=== PATIENT | female | born 1995 | race Caucasian/White ===

== ENCOUNTER 2017-03-28 10:35 | Inpatient (IN) | payer OTHER ==
[2017-03-28] MEDS ORDERED: PROMETHAZINE HCL 25 MG/1 ML VIAL IVPUSH ONE (10:55)
[2017-03-28] MEDS ORDERED: BUTORPHANOL TARTRATE 1 MG/ML VIAL IVPB ONE (10:55)
--- NOTE | 2017-03-28 10:58 | HP ---
Past Medical History - Primary Care Physician PCP:: Raquel Zuñiga - Admission Chief Complaint: Labor History of Present Illness: 21 yo EDC 03/30/17 ega 39.5 week admitted in labor History Source: Patient Home Medications - Allergies Allergies/Adverse Reactions: Allergies Allergy/AdvReac Type Severity Reaction Status Date / Time No Known Allergies Allergy Verified 03/28/17 11:22 - Home Medications Home Medications: Ambulatory Orders Vitamins (Sjr) - 1 tablet PO DAILY 03/28/17 Ferrous Sulfate [Feosol] 325 mg PO BID #60 tablet 03/30/17 Ibuprofen [Motrin -] 600 mg PO QID #28 tablet 03/30/17 Physical Exam - Maternity Constitutional: Yes: Well Nourished, No Distress HENT: Yes: WNL Neck: Yes: WNL Cardiovascular: Yes: WNL Lungs: Clear to auscultation Breast(s): Yes: WNL - Abdominal Exam/OB Number of Fetuses: Single Presentation: Vertex Contractions: Yes Category: I - Vaginal Exam/OB Dilatation (cm): 4 Effacement (%): 100 Amniotic Membrane Status: Bulging Presentation: Vertex/Position - Physical Exam Edema: No Hemorrhage Risk Assessment - Risk Factors Risk Score: 0 Risk Level: Low Risk Problem List - Problems (1) First stage of labor established Code(s): [id number] - Assessment/Plan IUP at 39.5 week Labor Plan IVF Stadol labs admit to LD
[2017-03-28] MEDS ORDERED: ELECTROLYTE-148 SOLN 1,000 ML IV SCH (11:00)
[2017-03-28 11:30] VITALS: BMI 21.4
[2017-03-28 11:51] LABS: BASO % 0.3 % (0-2.0); HEMATOCRIT 39.3 % (32.4-45.2); HEMOGLOBIN 12.5 GM/dL (10.7-15.3); LYMPH % 5.5 % (8-40); MCH 27.3 pg (25.7-33.7); MCHC 31.9 g/dl (32.0-36.0); MEAN CELL VOLUME 85.7 fl (80-96); MEAN PLT VOLUME 9.7 fl (7.5-11.1); NEUT % 92.2 % (42.8-82.8); PLATELET COUNT 216 K/MM3 (134-434); RBC 4.59 M/mm3 (3.60-5.2); RDW 14.4 % (11.6-15.6); WHITE BLOOD COUNT 13.5 K/mm3 (4.0-10.0)
[2017-03-28] MEDS ORDERED: BUTORPHANOL TARTRATE 1 MG/ML VIAL ONE ×2 (11:57)
[2017-03-28] MEDS ORDERED: PROMETHAZINE HCL 25 MG/1 ML VIAL ONE (11:57)
[2017-03-28 12:17] LABS: ANION GAP 12 (8-16); BLOOD UREA NITROGEN 6 mg/dL (7-18); CALCIUM 7.8 mg/dL (8.5-10.1); CHLORIDE 106 mmol/L (98-107); CO2 21 mmol/L (21-32); CREATININE 0.6 mg/dL (0.55-1.02); GLUCOSE,RANDOM 145 mg/dL (74-106); POTASSIUM 3.3 mmol/L (3.5-5.1); SODIUM 139 mmol/L (136-145)
[2017-03-28 12:24] LABS: INR 0.98 (0.82-1.09); PROTHROMBIN TIME (PATIENT) 11.1 SEC (9.98-11.88)
[2017-03-28 12:27] LABS: ACTIVATED PTT 28.9 SECONDS (26.9-34.4)
--- NOTE | 2017-03-28 12:42 | PN ---
Ante-Partal Exam - Subjective Subjective: Pt doing well Pt is sleeping after stadol Vital Signs: Vital Signs Temperature 98.2 F 03/28/17 12:00 Pulse Rate 74 03/28/17 12:00 Respiratory Rate 20 03/28/17 12:00 Blood Pressure 138/79 03/28/17 12:00 O2 Sat by Pulse Oximetry (%) Bleeding: No Headache: No Visual changes: No Right upper quadrant pain: No - Contractions Contractions: Yes Regularity: Regular Intensity: Moderate Monitor Mode: External - Exam during Labor Heart Rate: 150 Variability: Moderate Category: I Monitor Accelerations: Present Monitor Decelerations: None Exam: Vaginal Dilatation (cm): 10 Effacement (%): 100 Amniotic Membrane Status: Ruptured Amniotic Fluid: Clear Presentation: Vertex Station: +1 - Intrapartum Hemorrhage Risk Risk Score: 0 Risk Level: Low Risk - Assessment/Plan Assessment/Plan: IUP 39.5 week by usg 2nd stage Plan Continue present management
[2017-03-28] MEDS ORDERED: OXYTOCIN 20 UNITS in 0.9% NS 20 UNIT/1,000 ML INFUS.BAG IV ONE (12:47)
[2017-03-28] MEDS ORDERED: TUBERCULIN PPD 5 TU/0.1ML SYRINGE (IN PATIENT USE ONLY) ID ONE (13:00)
[2017-03-28] MEDS ORDERED: METHYLERGONOVINE MALEATE 0.2 MG/1 ML AMP IM PRN (14:38)
[2017-03-28] MEDS ORDERED: BENZOCAINE 20% 57 GM BOTTLE TP PRN (14:38)
[2017-03-28] MEDS ORDERED: BISACODYL 10 MG SUPP.RECT PR PRN (14:38)
[2017-03-28] MEDS ORDERED: WITCH HAZEL 50% (TUCKS) 40 PAD/JAR PAD TP PRN (14:38)
[2017-03-28] MEDS ORDERED: BENZOCAINE 28 GM HEMORRHOIDAL OINTMENT PR PRN (14:38)
[2017-03-28] MEDS: OXYTOCIN 20 UNITS in 0.9% NS 20 UNIT/1,000 ML INFUS.BAG IV SCH ×2 (15:25→20:37)
[2017-03-28 16:47] LABS: ARTERIAL BLOOD GAS pH 7.32 (7.35-7.45)
[2017-03-28 16:48] LABS: ARTERIAL BLOOD GAS BASE EXCESS -2.2 meq/l (-2-2)
[2017-03-28 16:53] LABS: VENOUS PC02 44.3 mmHg (38-52); VENOUS PH 7.34 (7.32-7.42); VENOUS PO2 31.1 mmHg (28-48)
[2017-03-28 16:53] LABS: ARTERIAL BLD GAS O2 SATURATION 63.2 % (90-98.9); ARTERIAL BLOOD GAS PO2 29.3 mmHg (80-100)
[2017-03-28] MEDS ORDERED: LIDOCAINE HCL 1% PRESERVATIVE FREE - 30ML VIAL ONE (17:04)
[2017-03-28] MEDS: ACETAMINOPHEN 325 MG TABLET (FP) PO PRN (17:51)
[2017-03-28] MEDS: IBUPROFEN 600 MG TABLET (FP) PO PRN (20:30)
[2017-03-29] MEDS: IBUPROFEN 600 MG TABLET (FP) PO PRN ×2 (03:54→19:11)
[2017-03-29] MEDS: ACETAMINOPHEN 325 MG TABLET (FP) PO PRN ×2 (03:56→19:12)
[2017-03-29 06:37] LABS: HBsAG SCREEN Negative (Negative)
[2017-03-29 08:14] LABS: BASO % 0.4 % (0-2.0); EOS % 0.2 % (0-4.5); HEMATOCRIT 23.2 % (32.4-45.2); HEMOGLOBIN 7.4 GM/dL (10.7-15.3); LYMPH % 13.7 % (8-40); MCH 27.7 pg (25.7-33.7); MCHC 31.9 g/dl (32.0-36.0); MEAN CELL VOLUME 87.1 fl (80-96); MONO % 9.6 % (3.8-10.2); NEUT % 76.1 % (42.8-82.8); PLATELET COUNT 171 K/MM3 (134-434); RBC 2.66 M/mm3 (3.60-5.2); RDW 14.2 % (11.6-15.6); WHITE BLOOD COUNT 13.2 K/mm3 (4.0-10.0)
[2017-03-30] MEDS: IBUPROFEN 600 MG TABLET (FP) PO PRN ×2 (01:52→12:18)
[2017-03-30] MEDS: ACETAMINOPHEN 325 MG TABLET (FP) PO PRN ×2 (01:53→12:19)
--- NOTE | 2017-03-30 06:53 | PN ---
Delivery - Delivery Vaginal Delivery: No Problems (Post hemorrhage seen and responded to fundal massage and pitocin) Type of Anesthesia: Local Episiotomy/Laceration: Midline EBL (cc): 500 Delivery, Single - Stages of Labor Date 1st Stage Initiatied: 03/28/17 Time 1st Stage Initiated: 06:00 Date 2nd Stage Initiated: 03/28/17 Time 2nd Stage Initiated: 12:35 Date of Delivery: 03/28/17 Time of Delivery: 15:17 Time Placenta Delivered: 15:25 - Condition of Infant Office Communication Professor/Well Surveying Engineer Present: No Gender: Male Weight: 7 lb 6 oz Position: Left, OA Total Hours ROM (Hrs/Mins): 2HRS-50 MINS - 1 Minute Total Score: 9 5 Minutes Total Score: 9 - [place] Feeding Plan Initial Plan: Elected not to breastfeed exclusively throughout hospitalization
--- NOTE | 2017-03-30 06:55 | PN ---
Post Note - Post Date of Delivery: 03/28/17 Post Day: 1 Vital Signs: Vital Signs - 24 hr 03/29/17 03/29/17 03/29/17 09:05 14:00 22:00 Temperature 98.6 F 98.6 F 98.5 F Pulse Rate 102 H 111 H 93 H Respiratory 18 20 18 Rate Blood Pressure 126/74 113/65 102/60 Labs: Laboratory Results - last 24 hr 03/29/17 06:25 WBC 13.2 H RBC 2.66 L D Hgb 7.4 L D Hct 23.2 L D MCV 87.1 MCH 27.7 MCHC 31.9 L RDW 14.2 Plt Count 171 D MPV 10.0 Neutrophils % 76.1 Lymphocytes % 13.7 D Monocytes % 9.6 D Eosinophils % 0.2 D Basophils % 0.4 - Subjective Subjective: No Complaints, No Nausea or vomiting - Objective Afebrile: Yes Breast: Not engorged Abdomen: Soft, Non-tender Uterus: Fundus firm Vagina: Scant lochia Extremities: Non-tender - Assessment/Plan (1) First stage of labor established Assessment: S/P Normal , Other (Anemia) Plan: Routine Care, Other (Iron BID )
[2017-03-30 07:39] LABS: BASO % 0.4 % (0-2.0); EOS % 0.3 % (0-4.5); HEMATOCRIT 21.7 % (32.4-45.2); LYMPH % 14.8 % (8-40); MCH 28.1 pg (25.7-33.7); MCHC 32.4 g/dl (32.0-36.0); MEAN CELL VOLUME 86.6 fl (80-96); MEAN PLT VOLUME 9.2 fl (7.5-11.1); MONO % 6.9 % (3.8-10.2); NEUT % 77.6 % (42.8-82.8); PLATELET COUNT 167 K/MM3 (134-434); RDW 14.5 % (11.6-15.6)
[2017-03-30] MEDS ORDERED: FERROUS SO4 325 MG TABLET (FP) PO SCH (08:00)
[2017-03-30 09:35] VITALS: BP 103/60; PULSE 84; TEMP 99.1
--- NOTE | 2017-03-30 10:08 | DS ---
Physical Exam-[employer] Vital Signs: Vital Signs Temperature 99.1 F 03/30/17 09:32 Pulse Rate 84 03/30/17 09:32 Respiratory Rate 20 03/30/17 09:32 Blood Pressure 103/60 03/30/17 09:32 O2 Sat by Pulse Oximetry (%) 100 03/28/17 16:15 Constitutional: Yes: Well Nourished, No Distress Respiratory: Yes: WNL Gastrointestinal: Yes: WNL ....Post : Yes: Uterus firm, Uterus non-tender Breast(s): Yes: WNL Labs: CBC, BMP 03/30/17 07:00 03/28/17 11:30 Delivery - Delivery Vaginal Delivery: No Problems (Post hemorrhage seen and responded to fundal massage and pitocin) Type of Anesthesia: Local Episiotomy/Laceration: Midline EBL (cc): 500 Delivery, Single - Stages of Labor Date 1st Stage Initiatied: 03/28/17 Time 1st Stage Initiated: 06:00 Date 2nd Stage Initiated: 03/28/17 Time 2nd Stage Initiated: 12:35 Date of Delivery: 03/28/17 Time of Delivery: 15:17 Time Placenta Delivered: 15:25 - Condition of Infant Communications Systems Engineer/Network Analyst Present: No Gender: Male Weight: 7 lb 6 oz Position: Left, OA Total Hours ROM (Hrs/Mins): 2HRS-50 MINS - 1 Minute Total Score: 9 5 Minutes Total Score: 9 - [place] Feeding Plan Initial Plan: Elected not to breastfeed exclusively throughout hospitalization Discharge Summary Reason For Visit: LABOR Current Active Problems First stage of labor established (Acute) anemai Procedures: Principal: Normal vaginal delivery Hospital Course: Post hemorrhage Condition: Good - Instructions Diet, Activity, Other Instructions: Physical activity Resume your normal everyday activity as tolerated no heavy lifting or exercise until seen by your surgeon. You may walk unlimited olive of and climb stairs. You may resume driving the car when you feel safe and comfortable behind the wheel. No sexual activity as instructed. Wound care If you have a bandage, leave it on, and keep dry for 48-72 hours. After that time discard the outer bandage. If they are tapes on the skin under the out of bandage leave them in place. They will peel off in the next 7 to 10 days. Do Not Peel them off. You may shower the day after surgery. If there are tapes present on the skin, you may shower over them. Diet There are no dietary restrictions. Eat healthy, high-fiber foods. Drink 6 to 8 glasses of liquid each day. This will assist in keeping your bowels are regular. Pain management You may take Tylenol or acetaminophen or Ibuprofen (for example, Motrin, Advil etc.) from my pain prescription medication is ordered should be taken as prescribed for moderate to severe pain. Call MD for any of the following: Severe pain not relieved by medication Fever of 101 or higher Excessive bleeding or drainage on dressing Inability to urinate Referrals: Raquel Zuñiga MD [Staff Physician] - Disposition: HOME - Home Medications Comprehensive Discharge Medication List: Ambulatory Orders Vitamins (Sjr) - 1 tablet PO DAILY 03/28/17 Ferrous Sulfate [Feosol] 325 mg PO BID #60 tablet 03/30/17 Ibuprofen [Motrin -] 600 mg PO QID #28 tablet 03/30/17
== END 2017-03-30 15:00 | disposition home or self-care (01) | DRG 560 ==
LOC: JLDR 10:35 → J3W 17:03
PROVIDERS: ADMIT Obstetrics & Gynecology; ATTEND Obstetrics & Gynecology
PROC: 0W8NXZZ Division of Female Perineum, External Approach (ICD-10-PCS; principal; 2017-03-28)
DX: O99.02 Anemia complicating childbirth (principal); D64.9 Anemia, unspecified; O72.1 Other immediate postpartum hemorrhage; Z3A.39 39 weeks gestation of pregnancy; Z37.0 Single live birth
CPT/HCPCS: 36415; 36600; 59409; 80048; 82803; 85025; 85610; 85730; 86593; 86762; 86850; 86900; 86901; 87340

== ENCOUNTER 2017-11-07 20:49 | Emergency (ER) | payer OTHER ==
[2017-11-07 21:02] VITALS: BP 110/71; PULSE 87; TEMP 98; BMI 18.3
--- NOTE | 2017-11-07 21:16 | PDOC ---
History of Present Illness - General Chief Complaint: Vaginal Sxs Stated Complaint: RASH Time Seen by Provider: 11/07/17 21:07 - History of Present Illness Initial Comments: 22-year-old female 7 months presents for evaluation of 3 weeks of vaginal discharge she describes it is at times yellow to greenish and thick white associated no other associated symptoms 11/07/17 21:14 Past History - Past Medical History Allergies/Adverse Reactions: Allergies Allergy/AdvReac Type Severity Reaction Status Date / Time No Known Allergies Allergy Verified 11/07/17 21:03 Home Medications: Ambulatory Orders metroNIDAZOLE 0.75% VAG. GEL [Metrogel 0.75% *Vaginal Gel* -] 1 applic VG HS #1 tube 11/07/17 Asthma: No Cancer: No Cardiac Disorders: No CVA: No COPD: No Diabetes: No HTN: No Seizures: No Thyroid Disease: No - Suicide/Smoking/Psychosocial Hx Smoking History: Never smoked Have you smoked in the past 12 months: No Hx Alcohol Use: No Drug/Substance Use Hx: No Hx Substance Use Treatment: No Review of Systems - Review of Systems : Yes: See HPI, Discharge All Other Systems: Reviewed and Negative *Physical Exam - Vital Signs Last Vital Signs Temp Pulse Resp BP Pulse Ox 98 F 87 18 110/71 98 11/07/17 20:59 11/07/17 20:59 11/07/17 20:59 11/07/17 20:59 11/07/17 20:59 - Physical Exam Comments: Vaginal examination pelvic examination done by female physician medical technician assistant 11/07/17 21:15 Medical Decision Making - Medical Decision Making Ariella Houser, exam consistent with BV. 11/07/17 21:20 *DC/Admit/Observation/Transfer Diagnosis at time of Disposition: Bacterial vaginitis - Referrals Referrals: Mohit Fermin [Primary Care Provider] - - Patient Instructions Additional Instructions: Use the medication as directed. Return to the emergency room should symptoms worsen or go unresolved. Follow-up with your clergy member in one to 2 days for further evaluation and treatment options. - Post Discharge Activity
--- NOTE | 2017-11-07 21:40 | PDOC ---
*Physical Exam - Vital Signs Last Vital Signs Temp Pulse Resp BP Pulse Ox 98 F 87 18 110/71 98 11/07/17 20:59 11/07/17 20:59 11/07/17 20:59 11/07/17 20:59 11/07/17 20:59 Progress Note - Progress Note Progress Note: Pelvic: External genitalia normal without lesions. Vaginal vault: copious malodorous fishy cottage cheese-like discharge. Cervix is long and closed/friable. No cervical motion tenderness. Uterus is nontender and normal in size. Adnexa are nontender and without masses. Cervical swabs and vaginal cultures are obtained. *DC/Admit/Observation/Transfer Diagnosis at time of Disposition: Bacterial vaginitis - Prescriptions Prescriptions: metroNIDAZOLE 0.75% VAG. GEL [Metrogel 0.75% *Vaginal Gel* -] 1 applic VG HS #1 tube - Referrals Referrals: Mohit Fermin [Primary Care Provider] - - Patient Instructions Additional Instructions: Use the medication as directed. Return to the emergency room should symptoms worsen or go unresolved. Follow-up with your sales and service officer in one to 2 days for further evaluation and treatment options. - Post Discharge Activity
--- NOTE | 2017-11-11 15:43 | PDOC ---
Patient Follow-up (Call Back) - Post ED Follow - Up Chief Complaint: Vaginal Sxs Condition at time of discharge: Stable Disposition at time of original discharge: HOME Reason for Call Back: Abnwl. Microbiology (yeast organism) Signs/Symptoms Improved: No (continued discharge ) - Disposition Rx Needed: Yes (diflucan 200mg) Additional Instructions/Notes: prescription sent to the pharmacy for diflucan for yeast infection pt continues to have discharge, I have referred her to her roto rooter operator
== END 2017-11-07 21:44 | disposition home or self-care (01) ==
LOC: JERFT 20:49
DX: N76.0 Acute vaginitis (principal); B96.89 Other specified bacterial agents as the cause of diseases classified elsewhere
CPT/HCPCS: 87070; 87077; 87205; 99281-25

== ENCOUNTER 2017-12-06 18:41 | Emergency (ER) | payer OTHER ==
[2017-12-06 18:48] VITALS: TEMP 98.6; BMI 18.0
--- NOTE | 2017-12-06 20:42 | PDOC ---
History of Present Illness - General Chief Complaint: Pain Stated Complaint: ABDOMINAL PAIN & WEAKNESS Time Seen by Provider: 12/06/17 20:42 History Source: Patient Exam Limitations: No Limitations - History of Present Illness Initial Comments: 12/06/17 21:31 22 year old female with PMH anemia presents to ED for lower abdominal pain x2 days. She describes her abdominal pain as achy/crampy, non-radiating, no alleviating or aggravating factors. She admits to dysuria, vaginal discharge, nausea, vomiting. She states since the of her child she has had multiple UTIs (march 2017). LMP x1 week ago. Pt also complains of intermittent chest pain x5 months. Allergies - NKDA Past History - Past Medical History Allergies/Adverse Reactions: Allergies Allergy/AdvReac Type Severity Reaction Status Date / Time No Known Allergies Allergy Verified 12/06/17 18:47 Home Medications: Ambulatory Orders metroNIDAZOLE 0.75% VAG. GEL [Metrogel 0.75% *Vaginal Gel* -] 1 applic VG HS #1 tube 11/07/17 Fluconazole [Diflucan] 200 mg PO ONCE #1 tablet 11/11/17 Cephalexin [Keflex] 500 mg PO BID #13 capsule 12/06/17 Fluconazole 150 mg PO DAILY #6 tablet 12/06/17 Ondansetron [Zofran Odt -] 4 mg SL TID PRN #9 od.tablet 12/06/17 Asthma: No Cancer: No Cardiac Disorders: No CVA: No COPD: No Diabetes: No HTN: No Seizures: No Thyroid Disease: No - Suicide/Smoking/Psychosocial Hx Smoking History: Never smoked Have you smoked in the past 12 months: No Hx Alcohol Use: No Drug/Substance Use Hx: No Hx Substance Use Treatment: No Review of Systems - Review of Systems Able to Perform ROS?: Yes Comments:: 12/06/17 22:02 General: denies fever, chills, night sweats, generalized weakness. HEENT: denies sore throat, rhinorrhea, ear pain. Heart: admits to chest pain. denies palpitations, syncope, lower extremity swelling, diaphoresis. Respiratory: denies shortness of breath, cough, sputum production, hemoptysis. Abdomen: admits to abdominal pain, nausea, vomiting. denies diarrhea, constipation, blood in stool. : admits to dysuria, vaginal discharge. denies hematuria, urinary incontinence , flank pain. Back: denies back pain. Musculoskeletal: denies joint pain, muscle pain, joint swelling. Neurological: denies headache, dizziness, numbness, tingling, weakness. Skin: denies rash, laceration, abrasion. *Physical Exam - Vital Signs Last Vital Signs Temp Pulse Resp BP Pulse Ox 98.6 F 126 H 20 120/68 99 12/06/17 18:42 12/06/17 18:42 12/06/17 18:42 12/06/17 18:42 12/06/17 18:42 - Physical Exam Comments: 12/06/17 22:03 Constitutional: Well-nourished, Well-developed, appearing stated age. HEENT: head is normocephalic, atraumatic. EOMI. PERRLA. Neck: supple. Full ROM. Heart: tachycardic. regular rhythm. no murmurs, rubs or gallops. Lungs: clear to auscultation bilaterally. no crackles, rhonchi or wheezing. no stridor. Abdomen: soft, nontender. normal bowel sounds. no rebound, guarding, masses. Pelvic: white discharge noted in vaginal canal consistent with yeast. cervix visualized, external os closed, minimal erythema to external os. no CMT. no adnexal tenderness. Extremities: Peripheral pulses intact. No lower extremity edema. Neurological: CN 2-12 grossly intact. Moves all four extremities. Psych: awake, alert, oriented x3. Follows commands. Answers questions appropriately. ED Treatment Course - LABORATORY CBC & Chemistry Diagram: 12/06/17 21:20 12/06/17 21:20 Medical Decision Making - Medical Decision Making 12/06/17 22:00 22 year old female with PMH anemia presents to ED for lower abdominal pain associated with dysuria, vaginal white discharge, nausea, vomiting x2 days. She also complains of chest pain x5 months. Initial Vital Signs Temp Pulse Resp BP Pulse Ox 98.6 F 126 H 20 120/68 99 12/06/17 18:42 12/06/17 18:42 12/06/17 18:42 12/06/17 18:42 12/06/17 18:42 Afebrile. Tachycardic - Likely secondary to dehydration - IV fluids ordered - Zofran ordered for nausea No tachypnea No hypotension No hypoxia on room air Evidence of yeast infection on pelvic examination. EKG performed at 2129 - rate 80, regular rhythm, normal axis, normal intervals, no acute ST changes. CBC WBC 11.0 K/mm3 (4.0-10.0) H 12/06/17 21:20 RBC 4.92 M/mm3 (3.60-5.2) 12/06/17 21:20 Hgb 10.7 GM/dL (10.7-15.3) 12/06/17 21:20 Hct 34.9 % (32.4-45.2) D 12/06/17 21:20 MCV 70.8 fl (80-96) L 12/06/17 21: MCH 21.8 pg (25.7-33.7) L D 12/06/17 21: MCHC 30.8 g/dl (32.0-36.0) L 12/06/17 21:20 RDW 18.8 % (11.6-15.6) H 12/06/17 21:20 Plt Count 489 K/MM3 (134-434) H D 12/06/17 21:20 MPV 7.8 fl (7.5-11.1) D 12/06/17 21:20 Absolute Neuts (auto) 8.2 K/mm3 (1.5-8.0) H 12/06/17 21:20 Neutrophils % 74.2 % (42.8-82.8) 12/06/17 21:20 Lymphocytes % 17.4 % (8-40) 12/06/17 21: Monocytes % 7.5 % (3.8-10.2) 12/06/17 21:20 Eosinophils % 0.3 % (0-4.5) 12/06/17 21: Basophils % 0.6 % (0-2.0) 12/06/17 21: Nucleated RBC % 0 % (0-0) 12/06/17 21: No leukocytosis. No anemia, but borderline. Urine Test Results Urine Color Eli 12/06/17 Unknown Urine Appearance Cloudy 12/06/17 Unknown Urine pH 5.0 (5.0-8.0) 12/06/17 Unknown Ur Specific [place] 1.028 (1.010-1.035) 12/06/17 Unknown Urine Protein 1+ (NEGATIVE) H 12/06/17 Unknown Urine Glucose (UA) Negative (NEGATIVE) 12/06/17 Unknown Urine Ketones Negative (NEGATIVE) 12/06/17 Unknown Urine Blood 1+ (NEGATIVE) H 12/06/17 Unknown Urine Nitrite Negative (NEGATIVE) 12/06/17 Unknown Urine Bilirubin Negative (<2.0 mg/dL) 12/06/17 Unknown Ur Leukocyte Esterase 3+ (NEGATIVE) H 12/06/17 Unknown Ur Epithelial Cells Few /HPF (FEW) 12/06/17 Unknown Urine Bacteria Rare /hpf (NONE SEEN) 12/06/17 Unknown Urine Mucus Few 12/06/17 Unknown Evidence of UTI. WBC = 300+ - Keflex ordered CMP Sodium 141 mmol/L (136-145) 12/06/17 21:20 Potassium 3.8 mmol/L (3.5-5.1) 12/06/17 21:20 Chloride 104 mmol/L (98-107) 12/06/17 21:20 Carbon Dioxide 29 mmol/L (21-32) 12/06/17 21:20 Anion Gap 8 MMOL/L (8-16) 12/06/17 21:20 BUN 8 mg/dL (7-18) 12/06/17 21:20 Creatinine 0.7 mg/dL (0.55-1.3) 12/06/17 21:20 Creat Clearance w eGFR > 60 (>60) 12/06/17 21:20 Random Glucose 79 mg/dL (74-106) 12/06/17 21:20 Calcium 9.0 mg/dL (8.5-10.1) 12/06/17 21:20 Total Bilirubin 0.4 mg/dL (0.2-1) 12/06/17 21:20 AST 10 U/L (15-37) L 12/06/17 21:20 ALT 19 U/L (13-61) 12/06/17 21:20 Alkaline Phosphatase 83 U/L (45-117) 12/06/17 21:20 Total Protein 7.9 g/dl (6.4-8.2) 12/06/17 21:20 Albumin 4.0 g/dl (3.4-5.0) 12/06/17 21:20 TSH 1.91 uIU/ml (0.358-3.74) 12/06/17 21:20 No electrolyte abnormalities. No acute kidney injury. No transaminitis. No hyperglycemia. Normal TSH. 12/06/17 22:22 Pt tolerated PO fluid challenge. 12/06/17 22:29 Pt reassessed, states she is feeling better, she tolerated solid food PO challenge. - HR 80 I spoke with the patient about the results. She stated she understood. I spoke with the patient about the plan for care, with which she agrees. Patient will be discharged. *DC/Admit/Observation/Transfer Diagnosis at time of Disposition: UTI (urinary tract infection), Vaginal discharge - Discharge Dispostion Disposition: HOME Condition at time of disposition: Stable Decision to Admit order: No - Prescriptions Prescriptions: Cephalexin [Keflex] 500 mg PO BID #13 capsule Fluconazole 150 mg PO DAILY #6 tablet Ondansetron [Zofran Odt -] 4 mg SL TID PRN #9 od.tablet PRN Reason: Nausea - Referrals - Patient Instructions Printed Discharge Instructions: DI for Vaginal Yeast Infection, DI for Urinary Tract Infection (UTI) Additional Instructions: DOCTOR'S INSTRUCTIONS: Your blood work was normal. - I have included a copy of your results in your discharge paperwork Your urine analysis revealed a urinary tract infection. - You received the first dose of the antibiotic here in the Emergency Department - I have sent a prescription to your pharmacy for the remainder of the antibiotic - Pick it up today and take as advised on label - Take a probiotic to avoid antibiotic associated diarrhea/yeast infections Your EKG was normal. You likely have a yeast infection - You received the treatment in the Emergency Department - I sent a prescription for a once daily dose of Fluconazole to take while you are on the antibiotics. Take as advised on label. I have sent a prescription for an anti-nausea medication to your pharmacy. Take as advised on label as needed for nausea. - I am only going to prescribe a few days worth. - If your vomiting continues beyond the amount of pills you have, return to the Emergency Department Follow up with your primary care doctor within 3 days. Call their office tomorrow morning and make an appointment for the earliest available. Tell them you were seen in the Emergency Department. Your care is not complete until you follow up. Return to the Emergency Department for fever >105, fever >3 days, increasing pain, lightheadedness, chest pain, shortness of breath, back/flank pain, or any other new, worsening or concerning symptoms. - Post Discharge Activity
[2017-12-06] MEDS ORDERED: SODIUM CHLORIDE 1,000 ML IV STA (21:10)
--- NOTE | 2017-12-06 21:11 | PDOC ---
Attending Attestation - HPI HPI: 12/06/17 21:14 The patient is a 22 year old female, , with no significant PMH who presents to the emergency department with lower abdominal pain, dysuria, white vaginal discharge for the past two days. Patient is also complaining of nausea and vomiting. The patient reports intermittent chest pain for the past 5 months. The patient denies shortness of breath, headache and dizziness. Denies fever, chills, diarrhea and constipation. Denies dysuria, frequency, urgency and hematuria. Allergies: NKA Past surgical history: None reported. Social history: No reported alcohol, drug, or cigarette use. - Physicial Exam PE: 12/06/17 22:32 Adult Exam: General: Well-nourished well-developed individual, no acute distress HEENT: Throat: Normal, tonsils normal, no erythema or exudate Neck: Supple, no meningeal signs, no lymphadenopathy Eyes::Pupils equal reactive and round, extraocular motion intact Chest: Nontender to palpation Cardiac: S1-S2 normal, regular rate and rhythm, no murmurs rubs or gallops Respiratory: Lungs clear to auscultation bilateral Abdomen: Soft, nondistended, normal bowel sounds, nontender to palpation diffusely Back: No flank pain. Extremities: Warm, dry, no cyanosis, clubbing, or edema Skin: No rashes Neuro: Alert and oriented x3, nonfocal exam, grossly intact, normal gait Psych: Normal mood and affect <Kristine Pennington - Last Filed: 12/06/17 22:32> - Resident Resident Name: Sneha Horan - ED Attending Attestation I have performed the following: I have examined & evaluated the patient, The case was reviewed & discussed with the resident, I agree w/resident's findings & plan - Medical Decision Making 12/06/17 22:33 Pt is feeling vastly improved with NSS and IV abx. She has slight lower abd pain, and she will be treated with OTC motrin. We will give her a dose of motrin beore d/c home. Pt states that her child has hand foot and mouth coxsackie virus. Pt understands that she may be at risk of picking up the viral infection from the child. 12/06/17 23:16 Home with keflex. <Dee Shi - Last Filed: 12/06/17 23:16> Heart Score/ECG Review - Age Age: </= 45 - ECG Intrepretation Rhythm: Regular Rhythm - [place]: Normal - ST and T Early Repolarization: No Non Specific ST-T Wave changes: No Prolonged Q-T Interval: No - ECG Impressions Normal ECG: Yes Non-specific ST Elevation: No Ischemic Changes: No <Dee Shi - Last Filed: 12/06/17 23:16>
[2017-12-06 21:16] LABS: URINE APPEARANCE CLOUDY; URINE BILIRUBIN NEGATIVE (<2.0 mg/dL); URINE COLOR AMBER; URINE GLUCOSE (UA) NEGATIVE (NEGATIVE); URINE KETONE NEGATIVE (NEGATIVE); URINE LEUK ESTERASE 3+ (NEGATIVE); URINE NITRITE NEGATIVE (NEGATIVE); URINE PROTEIN 1+ (NEGATIVE)
[2017-12-06 21:19] LABS: HCG,QUALITATIVE URINE Negative
[2017-12-06 21:25] LABS: EPI CELLS FEW /HPF (FEW); URINE BACTERIA RARE /hpf (NONE SEEN); URINE MUCUS FEW
[2017-12-06] MEDS ORDERED: ONDANSETRON 4 MG/2 ML VIAL IVPUSH ONE (21:33)
[2017-12-06 21:36] LABS: BASO % 0.6 % (0-2.0); EOS % 0.3 % (0-4.5); HEMATOCRIT 34.9 % (32.4-45.2); HEMOGLOBIN 10.7 GM/dL (10.7-15.3); LYMPH % 17.4 % (8-40); MCH 21.8 pg (25.7-33.7); MCHC 30.8 g/dl (32.0-36.0); MEAN CELL VOLUME 70.8 fl (80-96); MEAN PLT VOLUME 7.8 fl (7.5-11.1); MONO % 7.5 % (3.8-10.2); NEUT % 74.2 % (42.8-82.8); PLATELET COUNT 489 K/MM3 (134-434); RBC 4.92 M/mm3 (3.60-5.2); RDW 18.8 % (11.6-15.6)
[2017-12-06] MEDS ORDERED: CEFTRIAXONE 1 GM in DEXTROSE 5%-WATER - 50 ML IVPB ONE (21:47)
[2017-12-06] MEDS ORDERED: CEPHALEXIN MONOHYDRATE 500 MG CAPSULE (UD) PO ONE (22:05)
[2017-12-06] MEDS ORDERED: FLUCONAZOLE 150 MG TABLET PO ONE (22:06)
[2017-12-06] MEDS ORDERED: CEPHALEXIN MONOHYDRATE 500 MG CAPSULE (UD) ONE (22:08)
[2017-12-06] MEDS ORDERED: ONDANSETRON 4 MG/2 ML VIAL ONE (22:09)
[2017-12-06 22:12] LABS: ALK PHOS 83 U/L (45-117); ANION GAP 8 MMOL/L (8-16); BILIRUBIN,TOTAL 0.4 mg/dL (0.2-1); BLOOD UREA NITROGEN 8 mg/dL (7-18); CHLORIDE 104 mmol/L (98-107); CO2 29 mmol/L (21-32); CREATININE 0.7 mg/dL (0.55-1.3); GLUCOSE,RANDOM 79 mg/dL (74-106); POTASSIUM 3.8 mmol/L (3.5-5.1); SGOT/AST 10 U/L (15-37); SGPT/ALT 19 U/L (13-61); SODIUM 141 mmol/L (136-145); TOT PROT 7.9 g/dl (6.4-8.2)
[2017-12-06] MEDS ORDERED: FLUCONAZOLE 100 MG TABLET (UD) ONE (22:12)
[2017-12-06 22:17] LABS: ANISOCYTOSIS 1+
[2017-12-06 22:18] LABS: PLATELET ESTIMATE INCREASED
[2017-12-06] MEDS ORDERED: IBUPROFEN 600 MG TABLET (FP) PO ONE (22:32)
[2017-12-06 23:00] VITALS: BP 112/67; PULSE 90
--- NOTE | 2017-12-07 10:35 | EKG ---
Test Reason : Blood Pressure : / mmHG Vent. Rate : 080 BPM Atrial Rate : 080 BPM P-R Int : 116 ms QRS Dur : 084 ms QT Int : 370 ms P-R-T Axes : 033 043 033 degrees QTc Int : 426 ms NORMAL SINUS RHYTHM NORMAL ECG NO PREVIOUS ECGS AVAILABLE Confirmed by LEONARDO FLETCHER MD ([id number]) on 12/07/2017 10:35:36 AM Referred By: Confirmed By:LEONARDO FLETCHER MD
== END 2017-12-06 23:00 | disposition home or self-care (01) ==
LOC: JER 18:41
PROC: 3E0337Z Introduction of Electrolytic and Water Balance Substance into Peripheral Vein, Percutaneous Approach (ICD-10-PCS; principal; 2017-12-06)
PROC: 3E033GC Introduction of Other Therapeutic Substance into Peripheral Vein, Percutaneous Approach (ICD-10-PCS; 2017-12-06)
DX: N39.0 Urinary tract infection, site not specified (principal); E86.0 Dehydration
CPT/HCPCS: 36415; 80053; 81003; 81015; 82550; 84443; 84484; 84703; 85025; 87086; 93005; 93010; 96361; 96374; 99283-25; J7030

== ENCOUNTER 2021-01-15 19:19 | Emergency (ER) | payer OTHER ==
[2021-01-15 19:33] VITALS: TEMP 98.2; BMI 20.5
[2021-01-15] MEDS ORDERED: SODIUM CHLORIDE 0.9% 1000 ML INFUS.BAG IV ONE (20:28)
[2021-01-15] MEDS ORDERED: ONDANSETRON 4 MG/2 ML VIAL IVPUSH ONE (20:28)
[2021-01-15] MEDS ORDERED: ACETAMINOPHEN 1000 MG/100 ML VIAL IVPB ONE (20:28)
[2021-01-15] MEDS ORDERED: DOXYCYCLINE HYCLATE 100 MG CAPSULE PO ONE ×2 (20:38→21:09)
[2021-01-15] MEDS ORDERED: ACETAMINOPHEN INJECTION 100 ML IVPB ONE (20:42)
[2021-01-15] MEDS ORDERED: ONDANSETRON 4 MG/2 ML VIAL ONE (20:43)
[2021-01-15 21:40] LABS: BASO % 0.5 % (0-2.0); HEMATOCRIT 38.9 % (32.4-45.2); HEMOGLOBIN 12.8 GM/dL (10.7-15.3); LYMPH % 10.4 % (8-40); MCH 25.6 pg (25.7-33.7); MCHC 32.8 g/dl (32.0-36.0); MEAN PLT VOLUME 7.5 fl (7.5-11.1); MONO % 4.4 % (3.8-10.2); NEUT % 84.7 % (42.8-82.8); PLATELET COUNT 576 10^3/uL (134-434); RBC 4.99 M/mm3 (3.60-5.2); RDW 17.5 % (11.6-15.6); WHITE BLOOD COUNT 9.9 K/mm3 (4.0-10.0)
[2021-01-15 21:54] VITALS: BP 127/67; PULSE 91
[2021-01-15 22:32] LABS: ALBUMIN 4.3 g/dl (3.4-5.0); BILIRUBIN,TOTAL 0.8 mg/dL (0.2-1); BLOOD UREA NITROGEN 8.6 mg/dL (7-18); CALCIUM 9.7 mg/dL (8.5-10.1); CREATININE 0.7 mg/dL (0.55-1.3); TOT PROT 8.7 g/dl (6.4-8.2)
[2021-01-19 15:51] LABS: SYPHILIS W/ RPR CONF NON-REACTIVE (NONREACTIVE)
[2021-01-19 16:20] LABS: HIV INTERPRETATION NEGATIVE (NEGATIVE)
== END 2021-01-15 21:56 | disposition home or self-care (01) ==
LOC: JER 19:19
PROC: 3E02329 Introduction of Other Anti-infective into Muscle, Percutaneous Approach (ICD-10-PCS; principal; 2021-01-15)
PROC: 3E033NZ Introduction of Analgesics, Hypnotics, Sedatives into Peripheral Vein, Percutaneous Approach (ICD-10-PCS; 2021-01-15)
PROC: 3E033GC Introduction of Other Therapeutic Substance into Peripheral Vein, Percutaneous Approach (ICD-10-PCS; 2021-01-15)
DX: R42 Dizziness and giddiness (principal); Z20.3 Contact with and (suspected) exposure to rabies
CPT/HCPCS: 36415; 80053; 84703; 85025; 86780; 86803; 87389; 96372; 96374; 96375; 99284-25; J0131

== ENCOUNTER 2022-09-23 13:27 | Emergency (ER) | payer OTHER ==
[2022-09-23 13:38] VITALS: BP 114/65; PULSE 69; RESP 19; TEMP 98.1; BMI 21.8
[2022-09-23] MEDS ORDERED: ACETAMINOPHEN 500 MG TABLET (FP) PO ONE (14:31)
[2022-09-23] MEDS ORDERED: diphenhydrAMINE HCL 25 MG CAPSULE (FP) PO ONE ×2 (14:32→14:50)
[2022-09-23] MEDS ORDERED: ACETAMINOPHEN 325 MG TABLET (FP) ONE (14:50)
[2022-09-23] MEDS ORDERED: LIDOCAINE 5% TOPICAL PATCH TP ONE (16:05)
[2022-09-23] MEDS ORDERED: LIDOCAINE 5% TOPICAL PATCH ONE (16:17)
[2022-09-23] MEDS ORDERED: LIDOCAINE PATCH REMOVAL MC SCH (22:00)
== END 2022-09-23 16:45 | disposition home or self-care (01) ==
LOC: JER 13:27
DX: R07.9 Chest pain, unspecified (principal); R05.1 Acute cough
CPT/HCPCS: 71045-TC-FY; 93005; 93010; 99284-25

== ENCOUNTER 2022-10-13 23:52 | Inpatient (IN) | payer OTHER ==
[2022-10-14 00:37] VITALS: BMI 21.6
[2022-10-14 03:15] LABS: BASO % 0.3 % (0-2.0); EOS % 0.4 % (0-4.5); HEMOGLOBIN 11.5 GM/dL (10.7-15.3); LYMPH % 16.5 % (8-40); MEAN PLT VOLUME 7.3 fl (7.5-11.1); MONO % 6.1 % (3.8-10.2); NEUT % 76.7 % (42.8-82.8); PLATELET COUNT 420 10^3/uL (134-434); RBC 4.62 M/mm3 (3.60-5.2); RDW 16.6 % (11.6-15.6); WHITE BLOOD COUNT 12.6 K/mm3 (4.0-10.0)
[2022-10-14 03:28] LABS: POTASSIUM 4.1 mmol/L (3.5-5.1)
[2022-10-14] MEDS ORDERED: PIPERACILLIN/TAZOB 3.375 GM 3.375 GM in DEXTROSE 5%-WATER - 50 ML IVPB ONE (04:18)
[2022-10-14] MEDS ORDERED: VANCOMYCIN 1 GM PREMIX - 1 GM/200 ML BAG IVPB ONE (04:18)
[2022-10-14] MEDS ORDERED: PIPERACILLIN/TAZOB 4.5 GM 0 GM/0 ML BAG IVPB ONE (04:31)
[2022-10-14] MEDS ORDERED: PIPERACILLIN/TAZOB 3.375 GM 3.375 GM/50 ML BAG IVPB ONE (04:43)
[2022-10-14] MEDS ORDERED: VANCOMYCIN 1 GRAM (PRE-DOCKED) 1,000 MG/250 ML BAG IVPB ONE (04:43)
[2022-10-14 05:13] LABS: ALBUMIN 3.2 g/dl (3.4-5.0)
[2022-10-14 05:17] LABS: CREATININE 0.6 mg/dL (0.55-1.3)
[2022-10-14 05:18] LABS: TOT PROT 6.7 g/dl (6.4-8.2)
[2022-10-14 05:22] LABS: BILIRUBIN,TOTAL 0.2 mg/dL (0.2-1)
[2022-10-14 05:52] LABS: BLOOD UREA NITROGEN 8.5 mg/dL (7-18); CALCIUM 8.6 mg/dL (8.5-10.1)
[2022-10-14] MEDS ORDERED: ACETAMINOPHEN 1000 MG/100 ML BAG IVPB ONE (05:59)
[2022-10-14] MEDS ORDERED: ACETAMINOPHEN INJECTION 100 ML IVPB ONE (06:00)
[2022-10-14] MEDS ORDERED: ceFAZolin SODIUM 1 GM VIAL ONE (13:04)
[2022-10-14] MEDS: CEFAZOLIN 1 GM in DEXTROSE 5%-WATER - 50 ML IVPB SCH ×2 (13:11→22:11)
[2022-10-14] MEDS ORDERED: KETOROLAC TROMETHAMINE 15 MG/ML VIAL IVPUSH PRN (17:32)
[2022-10-14] MEDS ORDERED: CLINDAMYCIN 600MG PREMIX IVPB 600 MG/50 ML BAG IVPB SCH (18:00)
[2022-10-15] MEDS: CEFAZOLIN 1 GM in DEXTROSE 5%-WATER - 50 ML IVPB SCH ×3 (06:28→13:31)
[2022-10-15 09:45] LABS: BASO % 0.4 % (0-2.0); EOS % 1.5 % (0-4.5); LYMPH % 23.1 % (8-40); MCH 25.1 pg (25.7-33.7); MCHC 32.3 g/dl (32.0-36.0); MEAN CELL VOLUME 77.6 fl (80-96); MEAN PLT VOLUME 7.6 fl (7.5-11.1); PLATELET COUNT 371 10^3/uL (134-434); RBC 4.37 M/mm3 (3.60-5.2); RDW 16.6 % (11.6-15.6); WHITE BLOOD COUNT 8.8 K/mm3 (4.0-10.0)
[2022-10-15 11:38] LABS: POTASSIUM 4.1 mmol/L (3.5-5.1)
[2022-10-15 12:32] LABS: ALBUMIN 2.8 g/dl (3.4-5.0); CALCIUM 8.4 mg/dL (8.5-10.1); CREATININE 0.7 mg/dL (0.55-1.3)
[2022-10-15 12:33] LABS: BILIRUBIN,TOTAL 0.1 mg/dL (0.2-1); BLOOD UREA NITROGEN 6.3 mg/dL (7-18); TOT PROT 5.9 g/dl (6.4-8.2)
[2022-10-15] MEDS ORDERED: ACETAMINOPHEN 325 MG TABLET (FP) PO PRN (13:03)
[2022-10-15] MEDS ORDERED: oxyCODONE HCL 5 MG TABLET PO PRN ×2 (13:09→21:09)
[2022-10-15] MEDS: oxyCODONE HCL 5 MG TABLET PO PRN (13:23)
[2022-10-15] MEDS ORDERED: VANCOMYCIN 1,000 MG in DEXTROSE 5%-WATER - 250 ML IVPB ONE (15:15)
[2022-10-15] MEDS ORDERED: PIPERACILLIN/TAZOB 3.375 GM 3.375 GM in DEXTROSE 5%-WATER - 50 ML IVPB SCH ×2 (17:00→18:00)
[2022-10-15] MEDS: PIPERACILLIN/TAZOB 3.375 GM 3.375 GM in DEXTROSE 5%-WATER - 50 ML IVPB SCH (17:39)
[2022-10-16] MEDS: oxyCODONE HCL 5 MG TABLET PO PRN ×2 (00:38→08:52)
[2022-10-16] MEDS: PIPERACILLIN/TAZOB 3.375 GM 3.375 GM in DEXTROSE 5%-WATER - 50 ML IVPB SCH ×3 (01:09→17:09)
[2022-10-16 08:18] LABS: BASO % 0.4 % (0-2.0); EOS % 1.3 % (0-4.5); HEMATOCRIT 35.6 % (32.4-45.2); HEMOGLOBIN 11.3 GM/dL (10.7-15.3); LYMPH % 23.9 % (8-40); MCH 24.7 pg (25.7-33.7); MCHC 31.8 g/dl (32.0-36.0); MEAN CELL VOLUME 77.9 fl (80-96); MEAN PLT VOLUME 7.4 fl (7.5-11.1); MONO % 10.3 % (3.8-10.2); NEUT % 64.1 % (42.8-82.8); PLATELET COUNT 389 10^3/uL (134-434); RBC 4.58 M/mm3 (3.60-5.2); WHITE BLOOD COUNT 10.1 K/mm3 (4.0-10.0)
[2022-10-16] MEDS ORDERED: LIDOCAINE HCL 1%, 10 MG/ML (20ML VIAL) ONE (08:21)
[2022-10-16 08:38] LABS: POTASSIUM 4.1 mmol/L (3.5-5.1)
[2022-10-16 08:52] LABS: ALBUMIN 2.8 g/dl (3.4-5.0); BLOOD UREA NITROGEN 5.5 mg/dL (7-18); CALCIUM 8.4 mg/dL (8.5-10.1)
[2022-10-16 08:55] LABS: BILIRUBIN,TOTAL 0.2 mg/dL (0.2-1); CREATININE 0.6 mg/dL (0.55-1.3); TOT PROT 6.3 g/dl (6.4-8.2)
[2022-10-16] MEDS: KETOROLAC TROMETHAMINE 15 MG/ML VIAL IVPUSH PRN (17:17)
[2022-10-17 06:57] VITALS: RESP 18
[2022-10-17 08:33] LABS: BASO % 0.5 % (0-2.0); HEMATOCRIT 35.4 % (32.4-45.2); HEMOGLOBIN 11.1 GM/dL (10.7-15.3); LYMPH % 20.1 % (8-40); MCH 24.9 pg (25.7-33.7); MCHC 31.3 g/dl (32.0-36.0); MEAN CELL VOLUME 79.4 fl (80-96); NEUT % 70.4 % (42.8-82.8); PLATELET COUNT 402 10^3/uL (134-434); RBC 4.45 M/mm3 (3.60-5.2); RDW 17.1 % (11.6-15.6); WHITE BLOOD COUNT 9.9 K/mm3 (4.0-10.0)
[2022-10-17 08:53] LABS: POTASSIUM 4.2 mmol/L (3.5-5.1)
[2022-10-17 08:56] LABS: BLOOD UREA NITROGEN 10.1 mg/dL (7-18); CALCIUM 8.2 mg/dL (8.5-10.1)
[2022-10-17 08:57] LABS: ALBUMIN 2.8 g/dl (3.4-5.0)
[2022-10-17 08:59] LABS: CREATININE 0.7 mg/dL (0.55-1.3)
[2022-10-17 09:01] LABS: BILIRUBIN,TOTAL 0.2 mg/dL (0.2-1); TOT PROT 5.9 g/dl (6.4-8.2)
[2022-10-17] MEDS: KETOROLAC TROMETHAMINE 15 MG/ML VIAL IVPUSH PRN (10:38)
[2022-10-17 15:03] VITALS: BP 107/73; PULSE 76; TEMP 98.3
== END 2022-10-17 17:43 | disposition home or self-care (01) | DRG 383 ==
LOC: JER 23:52 → JERBED 10-14 09:47 → J7W 10-14 15:21 → OBSVTOIN 10-16 13:47
PROVIDERS: ADMIT Internal Medicine
PROC: 0J9P3ZZ Drainage of Left Lower Leg Subcutaneous Tissue and Fascia, Percutaneous Approach (ICD-10-PCS; principal; 2022-10-16)
DX: L02.416 Cutaneous abscess of left lower limb (principal); F41.9 Anxiety disorder, unspecified; L03.116 Cellulitis of left lower limb; B95.7 Other staphylococcus as the cause of diseases classified elsewhere
CPT/HCPCS: 36415; 72193-TC; 73719-LT; 80053; 84703; 85025; 86140; 87040; 87070; 87205; 99285-25; A9579; G0378; Q9967

== ENCOUNTER 2022-12-09 17:33 | Emergency (ER) | payer OTHER ==
[2022-12-09 17:38] VITALS: BP 108/74; PULSE 99; RESP 18; TEMP 98.4; BMI 21.6
[2022-12-09] MEDS ORDERED: ACETAMINOPHEN 1000 MG/100 ML BAG IVPB ONE (18:32)
[2022-12-09] MEDS ORDERED: CEFTRIAXONE 1,000 MG in DEXTROSE 5%-WATER - 50 ML IVPB ONE (18:33)
[2022-12-09] MEDS ORDERED: ACETAMINOPHEN INJECTION 100 ML IVPB ONE (18:35)
[2022-12-09] MEDS ORDERED: CEFTRIAXONE 1 GM/50 ML BAG ONE (18:53)
[2022-12-09 18:55] LABS: BASO % 0.8 % (0-2.0); EOS % 0.2 % (0-4.5); HEMATOCRIT 38.8 % (32.4-45.2); HEMOGLOBIN 12.7 GM/dL (10.7-15.3); LYMPH % 13.9 % (8-40); MCH 25.6 pg (25.7-33.7); MCHC 32.8 g/dl (32.0-36.0); MEAN CELL VOLUME 78.1 fl (80-96); MEAN PLT VOLUME 7.3 fl (7.5-11.1); MONO % 5.9 % (3.8-10.2); NEUT % 79.2 % (42.8-82.8); PLATELET COUNT 446 10^3/uL (134-434); RBC 4.96 M/mm3 (3.60-5.2); RDW 17.9 % (11.6-15.6); WHITE BLOOD COUNT 8.8 K/mm3 (4.0-10.0)
[2022-12-09 19:15] LABS: POTASSIUM 3.8 mmol/L (3.5-5.1)
[2022-12-09 19:18] LABS: ALBUMIN 3.9 g/dl (3.4-5.0); BLOOD UREA NITROGEN 7.9 mg/dL (7-18)
[2022-12-09 19:21] LABS: CREATININE 0.9 mg/dL (0.55-1.3)
[2022-12-09 19:22] LABS: BILIRUBIN,TOTAL 0.4 mg/dL (0.2-1); TOT PROT 7.9 g/dl (6.4-8.2)
== END 2022-12-09 21:00 | disposition home or self-care (01) ==
LOC: JER 17:33 → JERFT 17:33
PROC: 3E03329 Introduction of Other Anti-infective into Peripheral Vein, Percutaneous Approach (ICD-10-PCS; principal; 2022-12-09)
PROC: 3E033NZ Introduction of Analgesics, Hypnotics, Sedatives into Peripheral Vein, Percutaneous Approach (ICD-10-PCS; 2022-12-09)
DX: L02.415 Cutaneous abscess of right lower limb (principal)
CPT/HCPCS: 36415; 80053; 83036; 83605; 85025; 96365; 96375; 99284-25

== ENCOUNTER 2022-12-14 13:51 | Emergency (ER) | payer OTHER ==
[2022-12-14 13:58] VITALS: BP 100/59; PULSE 80; RESP 18; TEMP 98.1; BMI 21.6
== END 2022-12-14 18:00 | disposition home or self-care (01) ==
LOC: JERFT 13:51
PROC: 0H98XZZ Drainage of Buttock Skin, External Approach (ICD-10-PCS; principal; 2022-12-14)
DX: L02.31 Cutaneous abscess of buttock (principal); L03.317 Cellulitis of buttock
CPT/HCPCS: 99283-25

== ENCOUNTER 2023-11-17 16:21 | Emergency (ER) | payer OTHER ==
[2023-11-17 16:45] VITALS: BP 103/68; PULSE 92; RESP 18; TEMP 98.2; BMI 21.4
[2023-11-17] MEDS: DOXYCYCLINE HYCLATE 100 MG CAPSULE PO ONE (17:46)
== END 2023-11-17 17:47 | disposition home or self-care (01) ==
LOC: JER 16:21 → JERFT 16:21
DX: N76.0 Acute vaginitis (principal); A64 Unspecified sexually transmitted disease
CPT/HCPCS: 99283-25